=== PATIENT | female | born 1980 | race Caucasian/White ===

== ENCOUNTER 2017-05-07 21:02 | Emergency (ER) | payer OTHER ==
[2017-05-07 21:24] LABS: ABSOLUTE BASOPHILS # (AUTO) 0.1 10^3/uL (0.0-0.2); ABSOLUTE EOSINOPHILS # (AUTO) 0.1 10^3/uL (0.0-0.6); ABSOLUTE MONOCYTES (AUTO) 0.6 10^3/uL (0.1-1.4); BASOPHILS % (AUTO) 0.7 % (0-2); EOSINOPHILS % (AUTO) 0.8 % (0-6); HEMATOCRIT 43.6 % (36.0-47.0); HEMOGLOBIN 14.6 g/dL (12.0-15.5); HGB HCT DIFFERENCE 0.2; LYMPHOCYTES % (AUTO) 38.4 % (13-45); MEAN CORPUSCULAR HEMOGLOBIN 29.4 pg (27.0-33.4); MEAN CORPUSCULAR HGB CONC 33.4 g/dL (32.0-36.0); MEAN CORPUSCULAR VOLUME 88 fl (80-97); MONOCYTES % (AUTO) 8.2 % (3-13); RED BLOOD COUNT 4.95 10^6/uL (3.72-5.28); SEGMENTED NEUTROPHILS % (AUTO) 51.9 % (42-78); WHITE BLOOD COUNT 7.8 10^3/uL (4.0-10.5)
[2017-05-07 21:55] LABS: ALANINE AMINOTRANSFERASE 57 U/L (9-52); ALBUMIN 4.3 g/dL (3.5-5.0); ALKALINE PHOSPHATASE 83 U/L (38-126); ANION GAP 12 (5-19); ASPARTATE AMINO TRANSFERASE 33 U/L (14-36); BILIRUBIN,DIRECT 0.4 mg/dL (0.0-0.4); BILIRUBIN,TOTAL 0.7 mg/dL (0.2-1.3); BLOOD UREA NITROGEN 20 mg/dL (7-20); CALCIUM 9.5 mg/dL (8.4-10.2); CARBON DIOXIDE 24 mmol/L (22-30); CHLORIDE 103 mmol/L (98-107); CREATININE RESULT 0.62 mg/dL (0.52-1.25); GLUCOSE 90 mg/dL (75-110); MAGNESIUM 2.4 mg/dL (1.6-2.3); POTASSIUM 4.8 mmol/L (3.6-5.0); TOTAL PROTEIN 8.2 g/dL (6.3-8.2)
[2017-05-07 21:57] LABS: ALCOHOL < 10 mg/dL (NONE DETECTED)
[2017-05-07 22:06] LABS: APPEARANCE,URINE SLIGHTLY-CLOUDY; BILIRUBIN,URINE NEGATIVE (NEGATIVE); GLUCOSE, URINE NEGATIVE (NEGATIVE); KETONES,URINE NEGATIVE (NEGATIVE); LEUKOCYTE ESTERASE,URINE NEGATIVE (NEGATIVE); NITRITE,URINE NEGATIVE (NEGATIVE); PROTEIN,URINE NEGATIVE (NEGATIVE); URINE SPECIFIC GRAVITY 1.035
[2017-05-07 22:18] LABS: URINE BARBITURATES SCREEN NEGATIVE; URINE METHADONE SCREEN NEGATIVE; URINE OPIATES LOW NEGATIVE; URINE PHENCYCLIDINE SCREEN NEGATIVE
[2017-05-08] MEDS ORDERED: LORAZEPAM 1 MG TABLET PO ONE (00:41)
--- NOTE | 2017-05-08 00:45 | ER Document Report ---
ED General - General Chief Complaint: Seizure Stated Complaint: SIEZURES Time Seen by Provider: 05/07/17 22:37 - HPI Patient complains to provider of: Possible seizure activity Onset: Just prior to arrival Notes: Patient is currently incarcerated and [facility] coming in her possible seizure activity. Patient was being examined by the GI nurse was started having irregular respirations according to report and tonic-clonic motions. According to the EMS report came to the nurse patient was arousable to painful stimuli upon their arrival. Patient denies a history of seizure. Patient states prior to being transferred to [facility] she was receiving Librium at her other job facility every night for sleep control patient states she has not had any Librium for the last 3 days patient also states she has not had any alcohol for the last 8 days. Upon my evaluation patient is sleeping comfortably with no complaints at this time. Except for pain in the back of her head. - Related Data Allergies/Adverse Reactions: clindamycin Allergy (Verified 05/07/17 21:28) Past Medical History - Social History Smoking Status: Current Every Day Smoker Frequency of alcohol use: Heavy Drug Abuse: Heroin Family History: Reviewed & Not Pertinent Past Surgical History: Reports: Hx Abdominal Surgery Review of Systems - Review of Systems Constitutional: No symptoms reported EENT: No symptoms reported Cardiovascular: No symptoms reported Respiratory: No symptoms reported Gastrointestinal: No symptoms reported Genitourinary: No symptoms reported Female Genitourinary: No symptoms reported Musculoskeletal: No symptoms reported Skin: No symptoms reported Hematologic/Lymphatic: No symptoms reported Neurological/Psychological: Seizure -: Yes All other systems reviewed and negative Physical Exam - Vital signs Vitals: Temp Resp BP Pulse Ox 98.3 F 16 117/86 H 98 05/07/17 21:12 05/07/17 21:12 05/07/17 21:12 05/07/17 21:12 Interpretation: Normal - General General appearance: Appears well, Alert - HEENT Head: Normocephalic, Atraumatic Eyes: Normal Conjunctiva: Normal Cornea: Normal Extraocular movements intact: Yes Eyelashes: Normal Pupils: PERRL Anterior chamber: Normal Fundascopic: Normal - Respiratory Respiratory status: No respiratory distress Chest status: Nontender Breath sounds: Normal Chest palpation: Normal - Cardiovascular Rhythm: Regular Heart sounds: Normal auscultation Murmur: No - Abdominal Inspection: Normal Distension: No distension Bowel sounds: Normal Tenderness: Nontender Organomegaly: No organomegaly - Back Back: Normal, Nontender - Extremities General upper extremity: Normal inspection, Nontender, Normal color, Normal ROM , Normal temperature General lower extremity: Normal inspection, Nontender, Normal color, Normal ROM , Normal temperature, Normal weight bearing. No: Reinaldo's sign - Neurological Neuro grossly intact: Yes Cognition: Normal Orientation: AAOx4 [place] Coma Scale Eye Opening: Spontaneous [place] Coma Scale Verbal: Oriented [place] Coma Scale Motor: Obeys Commands [place] Coma Scale Total: 15 Speech: Normal Motor strength normal: LUE, RUE, LLE, RLE Sensory: Normal - Psychological Associated symptoms: Normal affect, Normal mood - Skin Skin Temperature: Warm Skin Moisture: Dry Skin Color: Normal Course - Re-evaluation Re-evalutation: 05/08/17 01:06 Patient with possible seizure activity did nursing staff did discuss with the local gel authority stating that they were going to place the patient on Librium at night and also start the patient on Dilantin. Feel that this is appropriate given the patient's history of alcohol abuse and on Librium prior patient was given 1 mg dose of Ativan for discharge patient was observed in the ER for 4 hours were no significant activity - Vital Signs Vital signs: Temp Pulse Resp BP Pulse Ox 98.3 F 19 124/77 97 05/07/17 21:12 05/08/17 00:48 05/08/17 00:49 05/08/17 00:48 - Laboratory Result Diagrams: 05/07/17 21:16 05/07/17 21:16 Laboratory results interpreted by me: 05/07/17 05/07/17 21:16 21:47 Magnesium 2.4 H ALT 57 H Urine Urobilinogen 4.0 H Discharge - Discharge Clinical Impression: Possible seizure-like activity Condition: Good Disposition: HOME, SELF-CARE Instructions: New Seizure ([facility]) Additional Instructions: Patient's workup did not did not reveal any critical pathology. Patient no longer had any further activity while being observed here in the ER for approximately 4 hours. Patient does give the report that she was on Librium at her last care home. Patient states she is not taking Librium in the last 3 days could be a possible etiology for those symptoms tonight however patient does have benzodiazepines positive in her urine drug screen. I would continue with the protocol Librium and Dilantin in care home. We will give the patient 1 dose of Ativan tonight for the trip back to the care home. Patient will receive 1 mg.
[2017-05-08 00:56] VITALS: BP 124/77
== END 2017-05-08 00:58 | disposition home or self-care (01) ==
LOC: ER 21:02
DX: R06.00 Dyspnea, unspecified (principal); G25.9 Extrapyramidal and movement disorder, unspecified; R51 Headache; F10.10 Alcohol abuse, uncomplicated; F17.200 Nicotine dependence, unspecified, uncomplicated
CPT/HCPCS: 36415; 80053; 80307; 81001; 83735; 84703; 85025; 99285